=== PATIENT | male | born 1950 | race Caucasian/White ===

== ENCOUNTER → 2017-05-14 | Outpatient (CLI) | payer OTHER ==
[~2017-05-14] VITALS: Ht 182.9 cm; Wt 94.8 kg
[~2017-05-14] MED LIST: ALEVE220 MG PO; FLOMAX0.4 MG PO; IBUPROFEN 600600 M1 PO; ISENTRESS400 MG PO; L-LYSINE1000 M1 PO; TRAMADOL 50 MG50 MG PO; TRUVADA 200 MG1 EACH PO; VITAMIN D2000 UNIT PO; XANAX 0.5 MG0.5 M1 PO
--- NOTE | ~2017-05-14 | HPC ---
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 The patient returns to pain clinic today noting he had incremental improvement of baseline pain; however, pain remains problematic in the right thigh and low back. He notes 50% relief following the injection, but again rates pain a 5-6 on a VAS. PHYSICAL EXAMINATION: Shows a 66-year-old gentleman, BMI is 28.3 kg/m2. Blood pressure 124/90, pulse 93, respirations 16. Rises from chair using armrest. Modest decreased right hip flexion and lower extremity extension strength, perhaps 4/5, all else is 5/5. Patellar and Achilles reflexes remain preserved. Rises from chair using armrest, modestly antalgic gait, diffuse tenderness across the low back. ASSESSMENT: Symptomatic lumbar radiculopathy in a gentleman with incremental relief following 1 epidural injection with ongoing radicular symptoms. RECOMMENDATIONS: 1. Repeat epidural injection under fluoroscopy today. 2. MRI of the lumbar spine. 3. Follow up after MRI. The patient states he is a little claustrophobic, we will request an open MRI and I have taken the liberty of writing for Xanax 0.5 mg, dispensed 2 tablets to take one in the morning of the MRI, one 30 minutes prior if needed. The patient will require a crew car driver for the MRI. PROCEDURE: Lumbar epidural injection under fluoroscopy. PROCEDURE NOTE: After both written and informed consent to include risk of spinal cord damage, increased pain, weakness and dural puncture, the patient was taken to the fluoroscopy suite, placed in the prone position. After sterile prep and drape, a skin wheal with lidocaine was raised. A 22-gauge epidural Tuohy needle was inserted in the midline at L3-L4 with good loss to resistance. Negative aspiration for cerebrospinal fluid or blood was noted. Then 1 mL of Omnipaque under biplanar fluoroscopy showed good spread within the epidural space. This was followed with 80 mg of triamcinolone plus 1 mL of 1.5% preservative-free Xylocaine, 0.5 mL Xylocaine was then injected to flush the [address] [address] PAIN MANAGEMENT CONSULTATION Name: MAGGIE GARZA [facility] [id number] Admission: 05/14/17 Attend Phys: Sanjeev Montanez DO Discharge: Date of : 54 Report #: [id number] needle; it was removed. The patient was monitored for an appropriate period of time and discharged in good and stable condition. <ELECTRONICALLY SIGNED> By: Sanjeev Montanez DO 05/18/17 0759 0637 0918 Sanjeev Montanez DO /nt
[2017-05-14 08:15] VITALS: BP 124/90
== END | disposition home or self-care (01) ==
LOC: PAIN 06:32
DX: M54.16 Radiculopathy, lumbar region (principal); Z87.891 Personal history of nicotine dependence; Z79.899 Other long term (current) drug therapy

== ENCOUNTER → 2017-06-04 | Outpatient (CLI) | payer OTHER ==
[~2017-06-04] VITALS: Ht 182.9 cm; Wt 96.5 kg
--- NOTE | ~2017-06-04 | HPC ---
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 He has had 2 lumbar epidural injections with overall improvement of baseline pain. Unfortunately, the pain continues to recur to baseline. Last visit, after we repeated the injection, I ordered an MRI of the lumbar spine. The patient returns to the pain clinic today noting that again the second injection afforded very good relief, greater than 80%, but pain recurred to baseline after a period of time. Currently, he rates his pain a 7-8 on VAS. He notes pain in low back, right leg anterior aspect of the knee. He did get an MRI of the lumbar spine, which we reviewed today. MRI shows right inferior neural foraminal effacement secondary to disk bulging, again at the levels of L3-L4 and L4-L5. He notes mild right inferior neural foraminal stenosis as well. ASSESSMENT: Symptomatic lumbar radiculopathy in a right L3 radicular pattern. RECOMMENDATIONS: Discussion with the patient today about therapeutic options. Ultimately, we elected to refer the patient to Neurosurgery for possible neural foraminotomy. He may have required EMG given fairly nominal appearance of MRI at least per the radiologist reading. I did not have the opportunity to examine the images personally. I did suggest that he take the disk from [facility] to his neurosurgical appointment. Today, we have elected to repeat epidural injection under fluoroscopy to help mitigate symptoms at least over the holidays. ASSESSMENT: Symptomatic lumbar radiculopathy. Clinical exam and history. RECOMMENDATIONS: 1. Epidural injection under fluoroscopy today at L3-L4. 2. Follow up with Neurosurgery. PROCEDURE: Lumbar epidural injection under fluoroscopy. PROCEDURE NOTE: After both written and informed consent to include risk of spinal cord damage, increased pain, weakness and dural puncture, the patient was taken to the fluoroscopy suite, placed in the prone position. After sterile [address] [address] PAIN MANAGEMENT CONSULTATION Name: MAGGIE GARZA Room #: REG [facility] Bazan#: [id number] Admission: 06/04/17 Attend Phys: Sanjeev Montaenz DO Discharge: Date of : 54 Report #: [id number] prep and drape, a skin wheal with lidocaine was raised. A 22-gauge epidural Tuohy needle was inserted in the midline at the level of L3-L4 with good loss to resistance. Negative aspiration for cerebrospinal fluid or blood was noted. Then 1 mL of Omnipaque under biplanar fluoroscopy showed good spread within the epidural space. This was followed with 80 mg of triamcinolone plus 1 mL of 1.5% preservative-free Xylocaine, 0.5 mL Xylocaine was then injected to flush the needle; it was removed. The patient was monitored for an appropriate period of time and discharged in good and stable condition. This is midline epidural. <ELECTRONICALLY SIGNED> By: Sanjeev Montanez DO 06/05/17 0650 [id number] [id number] Sanjeev Montanez DO /nt
[2017-06-04 09:03] VITALS: BP 123/89
== END | disposition home or self-care (01) ==
LOC: PAIN 06:58
DX: M54.16 Radiculopathy, lumbar region (principal); Z98.890 Other specified postprocedural states; Z87.891 Personal history of nicotine dependence

== ENCOUNTER → 2017-07-02 | Outpatient (CLI) | payer OTHER ==
[~2017-07-02] VITALS: Ht 180.3 cm; Wt 93.4 kg
[~2017-07-02] MED LIST changes: +HYDROCODONE-AP1 EAC6 PO
--- NOTE | ~2017-07-02 | HPC ---
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 Unfortunately, really nominal overall improvement of pain. Rates his pain of 4 on a VAS at present. He notes pain started in January without acute trauma. He has an appointment to see Neurosurgery later this week. MRI has noted right neural foraminal narrowing at L3-L4 secondary to disk bulging, though there is no definitive nerve root compression here. L4-L5 notes mild right inferior neural foraminal stenosis. His symptoms are classically right anterior thigh L3-L4 distribution. Does have ongoing weakness and in fact has fallen twice since last visit. PHYSICAL EXAMINATION: GENERAL: Otherwise unchanged, 66-year-old gentleman, BMI 20.7 kilograms per meter squared. VITAL SIGNS: Stable. MUSCULOSKELETAL: Rises using armrests, has subjective pain in the right anterior thigh, decreased right hip flexion, lower extremity extension strength. ASSESSMENT: Symptomatic lumbar radiculopathy by clinical exam and history. RECOMMENDATIONS: 1. I have taken the liberty of writing for hydrocodone 5/325 to be used sparingly, 1 tablet 2-3 times a day, limit 60 tablets for 30 days. Continue tramadol. In fact, we can call and 50 mg tablet, 120 tablets and continue gabapentin 300 mg t.i.d. and we can call in 90 tablets. He does not require the latter 2 prescriptions. I asked him to follow up after he sees a neurosurgeon. If he is a surgical candidate, we will be happy to help with post-surgical management. If he is not a surgical candidate, we may consider trialing spinal cord stimulator. <ELECTRONICALLY SIGNED> By: Sanjeev Montanez DO 07/03/17 0758 1613 [id number] Sanjeev Montanez DO /nt
[2017-07-02 12:43] VITALS: BP 126/79
== END ==
LOC: PAIN 06-25 06:42
DX: M54.16 Radiculopathy, lumbar region (principal)

== ENCOUNTER → 2018-09-07 | Outpatient (CLI) | payer OTHER ==
[~2018-09-07] VITALS: Ht 182.9 cm; Wt 99.2 kg
[~2018-09-07] MED LIST changes: +BIKTARVY 50-201 EACH PO; +NEURONTIN 300300 M1 PO
[2018-09-07 08:52] VITALS: BP 129/78
--- NOTE | 2018-09-07 09:18 | NUR ---
Pain Clinic Assessment: 1. History of Osteoarthritis: Left Lower Extremity Right Lower Extremity History of Rheumatoid Arthritis: 2. Height: 6 ft. 0 in. 182.9 cm. Weight: 218.8 lb. oz. 99.247 kg. Patient's BMI: 29.7 3. Vital Signs: BP: 129/78 Pulse: 80 Resp: 16 Temp: 02 Sat: 96 ECG Mon: 4. Pain Intensity: 10 IN AM/2 WITH MEDS 5. Fall Risk: Dizziness: Y Needs help standing or walking: N Fallen in the last 3 months: N Fall risk comments: 6. Patient on Blood Thinner: None 7. History of Hypertension: N 8. Opioid Therapy greater than 6 weeks: N Opiate Contract Signed: 9. Risk Assessment Tool Provided: 10. Functional Assessment Tool: 11. Recreational Drug Use: Current within past 3 mos Drug Type: Tobacco Use: Former Smoker Tobacco Type: Amount or Packs/day: How Many Years: Alcohol Use: No Frequency: Quant:
--- NOTE | 2018-09-13 08:05 | HPC ---
[facility] [place] [address] PAIN MANAGEMENT CONSULTATION Name: MAGGIE GARZA Room #: REG [facility] Hortensia#: [id number] Admission: 09/07/18 ������������������ Attend Phys: Francisco Javier Montanez DO Discharge: ������������������ Date of : 54 Report #: [id number] THIS REPORT FOR: //name// CC: Francisco Javier Garduno DATE OF SERVICE: 09/07/2018 CHIEF COMPLAINT: Low back pain, right lower extremity pain with paresthesias. HISTORY OF PRESENT ILLNESS: As you know, the patient is a 68-year-old male with longstanding history of low back pain, right lower extremity pain with paresthesias. The patient indicates pain today at a level of up to 10/10. He reports 2/10 with medication management. He returns today in followup visit to discuss treatment options for lumbar radicular symptoms involving the right lower extremity. The patient has been followed by my partner, Dr. Sanjeev Montanez for an extended period of time undergoing interlaminar epidural injections as well as medication management. He returns today in followup visit indicating continued low back pain, right lower extremity pain, wishing to discuss options for treatment. He denies any injury or trauma that may have led to symptom development. He presents today with imaging from 05/26/2017, which shows changes at the L3-L4 level, L4-L5 level and L5-S1 level with neural foraminal stenosis noted at the L5 level, which is most profound. ALLERGIES: No known drug allergies. CURRENT MEDICATIONS: Tamsulosin 0.4 mg once a day, tramadol 50 mg every 4 hours p.r.n. for pain, lysine 1000 mg per day, cholecalciferol 2000 units per day, hydrocodone 5/325 one tab p.o. q. 8 hours p.r.n. for pain, gabapentin 300 mg t.i.d., Biktarvy 50/200/25 once a day. SOCIAL HISTORY: The patient denies tobacco, alcohol, IV or illicit drug use. He is a former smoker. He is working. He is unaccompanied today. IMAGING: There is imaging from 2017 showing mild facet arthropathy and mild inferior neural foraminal encroachment at L3-L4; L4-L5, mild right inferior neural foraminal stenosis; L5-S1, marked disk space narrowing, bilateral inferior neural foraminal narrowing. PHYSICAL EXAMINATION: VITAL SIGNS: Blood pressure 129/78, pulse 80, respiratory rate 16 and unlabored. The patient is 96% on room air, height 6 feet tall, weight 218.8 pounds, BMI calculated 29.7. GENERAL: Well-developed, well-nourished, well-hydrated, 68-year-old male. He appears his stated age. He is placing current pain score at 2/[address] [address] PAIN MANAGEMENT CONSULTATION Name: MAGGIE GARZA [id number] Admission: 09/07/18 ������������������ Attend Phys: Francisco Javier Montanez DO Discharge: ������������������ Date of : 54 Report #: [id number] medications, 03/24 without medications. HEENT: Normocephalic, atraumatic. Pupils equal, round, reactive to light. Extraocular muscles are intact. EXTREMITIES: Show no clubbing, no cyanosis, and no edema. MUSCULOSKELETAL: Lower extremity strength is symmetrical 5/5. He has slight giveaway strength noted with hip flexion, knee extension on the right when compared to left due to pain generation. Pain is mainly on the anterior thigh. Muscle bulk and tone is symmetrical in comparing left lower extremity over right. Seated straight leg raising negative. Supine straight leg raising positive right. RAJIV test negative. Modified Gaenslen's positive for axial low back pain. ASSESSMENT: 1. Symptomatic lumbar radiculopathy. 2. Displacement of lumbar intervertebral disk with radiculopathy. 3. Lumbosacral spondylosis with radiculopathy. 4. Foraminal stenosis of the lumbar spine. 5. Chronic intractable pain. PLAN: 1. The patient returns today in followup visit where we have discussed at length the treatment options available for suspected lumbar radiculopathy. We discussed physical therapy, stretching exercises, core strengthening. We discussed medication management adjusting his current gabapentin to provide better analgesic benefit. We discussed epidural injections under fluoroscopic guidance, spinal cord stimulator therapy and surgical options. After reviewing the risks and benefits of all the proposed treatment options, the patient chose to move forward with medication management. 2. We recommend the patient increase his gabapentin from 300 mg t.i.d. in the following manner. The patient will increase 300 mg every 3 days, starting in the evening hours. He will begin with 300 mg in morning, 300 mg at noon, 600 mg at night for 3 nights, then increase to 900 mg at night for 3 nights, then if necessary move to 1200 mg at night. If no side effects to the medication including somnolence, decreased mental acuity, disorientation and confusion, he will then increase daytime dose in the morning hours initially up to 1200 mg every 3 days. If no side effects, then increase his noon dose to 1200 mg if necessary. Top dose of medication 1200 mg 3 times a day. He was provided a prescription of gabapentin to be able to titrate as directed. He will contact our clinic once he reaches efficacious level so that we can provide him the lowest number of tablets possible to continue his analgesic benefit. 3. The patient will return to our clinic on an as needed basis for further [facility] [address] [place] [address] PAIN MANAGEMENT CONSULTATION Name: MAGGIE GARZA [facility]#: [id number] Admission: 09/07/18 ������������������ Attend Phys: Francisco Javier Montanez DO Discharge: ������������������ Date of : 54 Report #: [id number] adjustments in medications. Otherwise, we will see him back to trial an epidural injection if he wishes to do so. ��������������������������������������������� <ELECTRONICALLY SIGNED> ���������������������������������������� By: Francisco Javier Montanez DO ��������������������������������������������� 09/13/18 0805 1430 0319 Francisco Javier Montanez DO /nt
== END ==
LOC: PAIN 06:53
DX: M47.27 Other spondylosis with radiculopathy, lumbosacral region (principal); M51.16 Intervertebral disc disorders with radiculopathy, lumbar region; M48.061 Spinal stenosis, lumbar region without neurogenic claudication; G89.4 Chronic pain syndrome; Z79.899 Other long term (current) drug therapy